=== PATIENT | female | born 1980 | race Caucasian/White ===

== ENCOUNTER 2020-01-21 21:54 | Emergency (ER) | payer OTHER ==
[~2020-01-21] VITALS: Ht 152.4 cm; Wt 67.6 kg
[2020-01-21 21:59] VITALS: Ht 152.4 cm; Wt 67.6 kg
[2020-01-21 23:44] VITALS: BP 133/96
== END 2020-01-21 23:44 | disposition home or self-care (01) ==
LOC: ED 21:54
DX: J02.9 Acute pharyngitis, unspecified (principal); R03.0 Elevated blood-pressure reading, without diagnosis of hypertension